=== PATIENT | female | born 1990 | race Two or more races ===

== ENCOUNTER 2023-12-20 04:26 | Emergency (ER) | payer MEDICAID, OTHER ==
[~2023-12-20] VITALS: Ht 167.6 cm; Wt 110.0 kg
[2023-12-20 04:32] VITALS: BP 144/73; PULSE 110; RESP 16; TEMP 98
== END 2023-12-20 04:27 | disposition home or self-care (01) ==
LOC: EMS 04:27
DX: S51.812A Laceration without foreign body of left forearm, initial encounter (principal); Z53.21 Procedure and treatment not carried out due to patient leaving prior to being seen by health care provider; X58.XXXA Exposure to other specified factors, initial encounter; Y93.89 Activity, other specified; Y92.89 Other specified places as the place of occurrence of the external cause; Y99.8 Other external cause status
CPT/HCPCS: 99281; Z7502